=== PATIENT | female | born 1950 | race Hispanic/Latino ===

== ENCOUNTER 2017-09-18 11:02 | Day surgery (SDC) | payer MEDICARE ==
[~2017-09-18 11:02] MED LIST: IOPIDINE ONE; MYDRIACYL ONE; NEOFRIN ONE
[2017-09-18] MEDS ORDERED: IOPIDINE OS ONE (11:25)
[2017-09-18] MEDS ORDERED: NEOFRIN OS ONE (11:25)
[2017-09-18] MEDS ORDERED: MYDRIACYL OS ONE (11:25)
[2017-09-18 11:57] VITALS: BP 117/68
== END 2017-09-18 11:03 | disposition home or self-care (01) ==
LOC: OR 11:02
PROVIDERS: ATTEND Specialist
DX: H26.492 Other secondary cataract, left eye (principal); M19.90 Unspecified osteoarthritis, unspecified site; J44.9 Chronic obstructive pulmonary disease, unspecified; Z87.891 Personal history of nicotine dependence; Z90.710 Acquired absence of both cervix and uterus; Z98.890 Other specified postprocedural states

== ENCOUNTER 2017-12-18 10:42 | Day surgery (SDC) | payer MEDICARE ==
[2017-12-18] MEDS ORDERED: NEOFRIN OD ONE (11:09)
[2017-12-18] MEDS ORDERED: IOPIDINE OD ONE ×3 (11:09→12:58)
[2017-12-18] MEDS ORDERED: MYDRIACYL OD ONE (11:09)
[2017-12-18 20:55] VITALS: BP 130/62
== END 2017-12-18 13:01 | disposition home or self-care (01) ==
LOC: OR 10:42
PROVIDERS: ATTEND Ophthalmology
DX: H26.491 Other secondary cataract, right eye (principal); M19.90 Unspecified osteoarthritis, unspecified site; Z87.891 Personal history of nicotine dependence; Z90.710 Acquired absence of both cervix and uterus; Z98.890 Other specified postprocedural states